=== PATIENT | female | born 1995 | race Caucasian/White ===

== ENCOUNTER 2021-09-20 18:08 | Observation (INO) | payer OTHER, SELFPAY ==
[2021-09-20] VITALS (16 sets, daily range): BP systolic 103–128; BP diastolic 52–76; PULSE 94–190; O2SAT 99–100; BMI 39.3
[2021-09-20] MEDS: ACETAMINOPHEN 325 MG TABLET 650 MG PO (18:46)
[2021-09-20] MEDS: ONDANSETRON INJ 4 MG/2 ML VIAL IV PUSH (18:46)
[2021-09-20] MEDS: LACTATED RINGERS 1,000 ML 999 ML IV CONT (18:48)
--- NOTE | 2021-09-23 13:13 | PM.OBTRLD ---
OB - Triage/Final Diagnosis Visit Information Reason for evaluation: threatened labor Comments/Additional reasons for admission: I have assessed the risk for this patient, Lottie Mancilla, and determined that she would benefit from observation care.
== END 2021-09-20 20:28 | disposition home or self-care (01) ==
PROVIDERS: Admitting Provider Obstetrics & Gynecology; Visit Provider Obstetrics & Gynecology
DX: O47.03 False labor before 37 completed weeks of gestation, third trimester (principal); Z3A.29 29 weeks gestation of pregnancy
CPT/HCPCS: 84112; 96374; A9270; G0378; G0379; J2405; J7120